=== PATIENT | male | born 1940 | race Caucasian/White ===

== ENCOUNTER → 2016-03-22 | Outpatient (CLI) | payer MEDICARE, BC | END | disposition home or self-care (01) | LOC: PCVCCLINIC 15:43 | PROVIDERS: ATTEND Internal Medicine Cardiovascular Disease | DX: I48.91 Unspecified atrial fibrillation (principal); R07.9 Chest pain, unspecified; D64.9 Anemia, unspecified; E78.00 Pure hypercholesterolemia, unspecified; I49.5 Sick sinus syndrome; I25.10 Atherosclerotic heart disease of native coronary artery without angina pectoris; I10 Essential (primary) hypertension; R53.1 Weakness; Z95.0 Presence of cardiac pacemaker; Z86.73 Personal history of transient ischemic attack (TIA), and cerebral infarction without residual deficits | CPT/HCPCS: 80061; 93005; G0463 ==

== ENCOUNTER → 2016-04-05 | Outpatient (CLI) | payer MEDICARE, BC ==
[~2016-04-05] MED LIST: REGADENOSON 0.4 MG/5 ML DISP.SYRIN. IV ONE
== END | disposition home or self-care (01) ==
LOC: PCVCIMAG 08:35
PROVIDERS: ATTEND Internal Medicine Cardiovascular Disease
DX: I25.10 Atherosclerotic heart disease of native coronary artery without angina pectoris (principal); I48.91 Unspecified atrial fibrillation; R06.00 Dyspnea, unspecified; Z95.5 Presence of coronary angioplasty implant and graft
CPT/HCPCS: 78452; 93017; A9500; J2785

== ENCOUNTER → 2016-11-01 | Outpatient (CLI) | payer MEDICARE, BC | END | disposition home or self-care (01) | LOC: PCVCCLINIC 13:36 | PROVIDERS: ATTEND Internal Medicine Cardiovascular Disease | DX: I48.91 Unspecified atrial fibrillation (principal); I49.5 Sick sinus syndrome; I25.10 Atherosclerotic heart disease of native coronary artery without angina pectoris; I10 Essential (primary) hypertension; Z82.49 Family history of ischemic heart disease and other diseases of the circulatory system; Z95.0 Presence of cardiac pacemaker | CPT/HCPCS: 93280 ==

== ENCOUNTER → 2016-11-26 | Outpatient (CLI) | payer MEDICARE, BC | END | disposition home or self-care (01) | LOC: PCVCCLINIC 14:00 | PROVIDERS: ATTEND Internal Medicine Cardiovascular Disease | DX: I48.91 Unspecified atrial fibrillation (principal); I25.10 Atherosclerotic heart disease of native coronary artery without angina pectoris; I10 Essential (primary) hypertension; I49.5 Sick sinus syndrome; E78.00 Pure hypercholesterolemia, unspecified; R94.31 Abnormal electrocardiogram [ECG] [EKG]; Z95.0 Presence of cardiac pacemaker; Z82.49 Family history of ischemic heart disease and other diseases of the circulatory system; Z79.899 Other long term (current) drug therapy; Z79.82 Long term (current) use of aspirin | CPT/HCPCS: 80061; 93005; G0463 ==

== ENCOUNTER → 2018-04-26 | Outpatient (CLI) | payer MEDICARE ==
--- NOTE | 2018-04-26 15:15 | PCVCIMAG ---
APPROVED REPORT Study performed: 04/26/2018 12:59:09 EXAM: Comprehensive 2D, Doppler, and color-flow Echocardiogram Patient Location: Echo lab Status: routine BSA: 2.01 HR: 60 bpmBP: 138/80 mmHg Rhythm: Pacemaker Other Information Study Quality: Good Risk Factors: Cardiac Risk Factors: HTN, Hyperlipidemia Indications Atrial Fibrillation Pacemaker Renal Disease 2D Dimensions IVSd: 7.70 (7-11mm)LVOT Diam: 18.39 (18-24mm) LVDd: 44.09 mm PWd: 9.25 (7-11mm)Ascending Ao: 38.59 (22-36mm) LVDs: 27.60 (25-40mm) Left Atrium: 32.19 (27-40mm) Aortic Root: 30.52 mm LV Single Plane 4CH: 63.47 % LV Single Plane 2CH: 53.13 % Biplane EF: 59.4 % Volumes Left Atrial Volume (Systole) Single Plane 4CH: 44.99 mLSingle Plane 2CH: 64.11 mL LA ESV Index: 27.00 mL/m2 Aortic Valve AoV Peak Lucas.: 1.15 m/s AO Peak Gr.: 5.33 mmHgLVOT Max P.83 mmHg LVOT Max V: 0.84 m/s PAULETTE Vmax: 1.93 cm2 Mitral Valve E/A Ratio: 0.8 MV Decel. Time: 270.24 ms MV E Max Lucas.: 0.56 m/s MV A Lucas.: 0.73 m/s IVRT: 155.71 ms TDI E/Lateral E': 7.00E/Medial E': 9.33 Medial E' Lucas.: 0.06 m/s Lateral E' Lucas.: 0.08 m/s Pulmonary Valve PV Peak Gr.: 1.55 mmHg Tricuspid Valve TR Peak Lucas.: 1.99 m/s TR Peak Gr.: 15.89 mmHg Left Ventricle The left ventricle is normal size. There is normal LV segmental wall motion. There is normal left ventricular wall thickness. Left ventricular systolic function is normal. The left ventricular ejection fraction is within the normal range. LVEF is 60-65%. The left ventricular diastolic function is normal. Right Ventricle The right ventricle is normal size. The right ventricular systolic function is normal. Pacemaker lead is present in the right ventricle. Atria Left atrium is mildly dilated. Right atrium is mildly dilated. Pacemaker lead is present in the right atrium. Aortic Valve The aortic valve is normal in structure. No aortic regurgitation is present. There is no aortic valvular stenosis. Mitral Valve The mitral valve is normal in structure. Trace mitral regurgitation. No evidence of mitral valve stenosis. Tricuspid Valve The tricuspid valve is normal in structure. Trace tricuspid regurgitation. Pulmonary artery pressure is 23mmHg. Pulmonic Valve The pulmonary valve is normal in structure. Trace pulmonic regurgitation. Great Vessels The aortic root is normal in size. IVC is normal in size and collapses >50% with inspiration. Pericardium There is no pericardial effusion. <Conclusion> The left ventricle is normal size. LVEF is 60-65%. The right ventricle is normal size. Left atrium is mildly dilated. Pacemaker lead is present in the right ventricle. Right atrium is mildly dilated. Pacemaker lead is present in the right atrium. Trace mitral regurgitation. The aortic valve is normal in structure. Trace tricuspid regurgitation. Pulmonary artery pressure is 23mmHg. The aortic root is normal in size. There is no pericardial effusion.
== END | disposition home or self-care (01) ==
LOC: PCVCIMAG 12:46
PROVIDERS: ATTEND Internal Medicine Cardiovascular Disease
DX: I48.91 Unspecified atrial fibrillation (principal); I25.10 Atherosclerotic heart disease of native coronary artery without angina pectoris; I49.5 Sick sinus syndrome; I12.9 Hypertensive chronic kidney disease with stage 1 through stage 4 chronic kidney disease, or unspecified chronic kidney disease; N18.3 Chronic kidney disease, stage 3 (moderate); E78.00 Pure hypercholesterolemia, unspecified; E78.5 Hyperlipidemia, unspecified; Z95.0 Presence of cardiac pacemaker; Z79.82 Long term (current) use of aspirin
CPT/HCPCS: 93280; 93306; G0463

== ENCOUNTER → 2018-10-11 | Outpatient (CLI) | payer MEDICARE ==
--- NOTE | 2018-10-16 09:19 | PCVCIMAG ---
APPROVED REPORT Study performed: 10/11/2018 14:56:34 Exam: Stress Echocardiogram Indication: Chest pain, fatigue, CAD Patient Location: Echo lab Stress Nurse: Akua Melendez RN Room #: 2 Status: routine Ht: 5 ft 11 in HR: 60 bpm Medical History Medical History: SSS,PACEMAKER,OCCLUDED RCA Cardiac Risk Factors: Hyperlipidemia, HTN Pretest Chest Pain Characteristics: No chest pain Exercise History: Physically active Procedure The patient underwent an Exercise Stress Test using the Homero Protocol. Blood pressure, heart rate, and EKG were monitored. An Echocardiogram was performed by log data technician in four stages in quad fashion. At peak stress, four selected images were obtained and placed side by side with resting images for comparison. Stress Test Details Stress Test: Exercise stress testing was performed using a Homero protocol. HR Resting HR: 60 bpmMax Heart Rate (APMHR): 141 bpm Max HR Achieved: 125 bpmTarget HR (85% APMHR): 119 bpm % of APMHR: 88 Recovery HR: 61 bpm HR response to stress: Normal HR response to stress BP Resting BP: 140/82 mmHg Max BP: 168/74 mmHg Recovery BP: 132/76 mmHg BP response to stress: Normal blood pressure response to stress. ECG Resting ECG: Sinus Rhythm Stress ECG: Nonspecific intraventricular block ST Change: Non-ischemic Maximum ST Deviation: -1.25 mm Arrhythmia: Rare PVCs Recovery ECG: BBB converts to sinus rhythm 50 sec into post stress Recovery ST Change: Non-ischemic Recovery ST Deviation: -0.75 mm Recovery Arrhythmia: Rare PAC, PVCs Clinical Reason for Termination: Maximal effort Stress Symptoms: fatigue Exercise duration: 10 min 02 sec Highest Stage Achieved: Stage 4: 4.2 mph at 16% grade. Exercise capacity: 13.7 METs Overall Exercise Capacity for Age: Excellent Scale: Active Angina Score: None No complications. Stress ECG Conclusion The patient exercised according to the HOMERO protocol for 10:02 mins; achieving a work level of 13.7 METS. The resting heart rate of 60 bpm mary to a maximum heart rate of 125 bpm. This value represents 88% of the maximal, age-predicted heart rate. The resting blood pressure of 140/82 mmHg, mary to a maximum blood pressure of 168/74 mmHg. The exercise test was stopped due to fatigue . Kruger Treadmill Score is 16.3 which is Low risk. Pre-Stress Echo The resting Echocardiogram showed normal left ventricular contractility with an estimated Ejection Fraction of about 55-60%. Normal wall motion in all segments on baseline images. Post-Stress Echo The stress Echocardiogram showed normal left ventricular contractility with an estimated Ejection Fraction of about 65-70%. Normal augmentation of wall motion in all segments on post stress images. Clinical No clinical or ECG evidence for ischemia. Conclusion Clinical Response: Non-ischemic Exercise Capacity: Superior Stress ECG Response: Non-ischemic Stress Echo Images: Non-ischemic No clinical, EKG or echocardiographic evidence for ischemia. No echocardiographic evidence for exercise induced ischemia. Normal stress echocardiogram with maximal exercise stress. <Conclusion> No clinical, EKG or echocardiographic evidence for ischemia. No echocardiographic evidence for exercise induced ischemia. Normal stress echocardiogram with maximal exercise stress.
== END | disposition home or self-care (01) ==
LOC: PCVCIMAG 14:26
PROVIDERS: ATTEND Internal Medicine Cardiovascular Disease
DX: I25.10 Atherosclerotic heart disease of native coronary artery without angina pectoris (principal); I10 Essential (primary) hypertension; I48.91 Unspecified atrial fibrillation
CPT/HCPCS: 93325; 93351